=== PATIENT | male | born 1990 | race Caucasian/White ===

== ENCOUNTER 2022-01-22 02:49 | Outpatient (CLI) | payer MEDICAID, SELFPAY ==
--- NOTE | 2022-01-22 11:00 | RT.EKG_ITS ---
APPROVED REPORT Exam: Resting ECG Reason for Exam: High Risk Medication Management Patient Location: O HR:68 bpm ECG Measurements Heart Rate 68 AXIS AZ 165 P 41 QRSd 106 QRS 57 QT 399 T 77 QTc 425 Conclusion Sinus rhythm...normal P axis, V-rate 50- 99 Borderline low voltage, extremity leads...all extremity leads <0.6mV Poor R wave progression Diffuse nondiagnostic ST-T abnormalities
== END 2022-01-22 02:50 | disposition home or self-care (01) ==
LOC: RT 02:49
PROVIDERS: Visit Provider Family Medicine